=== PATIENT | female | born 1995 | race Caucasian/White ===

== ENCOUNTER → 2019-07-01 16:01 | Outpatient (CLI) | payer BC, SELFPAY ==
[2019-07-01 14:04] VITALS: BMI 27.6
[2019-07-06 21:15] LABS: HPV Reflexed? NOT INDICATED
== END ==
PROVIDERS: Referring Provider Nurse Practitioner Women's Health; Visit Provider Nurse Practitioner Women's Health
DX: Z12.4 Encounter for screening for malignant neoplasm of cervix (principal)
CPT/HCPCS: 88175; G0145